=== PATIENT | female | born 1950 | race Caucasian/White ===

== ENCOUNTER → 2016-08-10 | Outpatient (CLI) | payer MEDICARE, BC, OTHER ==
--- NOTE | 2016-08-10 13:40 | RADIOLOGY REPORT (SQ) ---
EXAM DESCRIPTION: MRI LUMBAR SPINE WITHOUT COMPLETED DATE/TIME: 08/10/2016 1:09 pm REASON FOR STUDY: LOW BACK PAIN M54.5 LOW BACK PAIN COMPARISON: None. TECHNIQUE: Sagittal and Axial imaging includes T1, T2, STIR and gradient echo sequences. Coronal T2/ HASTE imaging. LIMITATIONS: None. FINDINGS: VISUALIZED UPPER ABDOMEN: Limited evaluation. No acute or suspicious findings suggested. SEGMENTATION: No transitional anatomy. The lowest well-developed disc space is labeled L5-S1. ALIGNMENT: Mild grade 1 anterolisthesis of L3 over L4, and L4 over L5 VERTEBRAE: Intact. BONE MARROW: Normal. No marrow replacement or reactive changes. DISC SIGNAL: Diffuse decreased T2 weighted intervertebral disc signal. Disc space loss of height at L2-3 and L4-5 POSTERIOR ELEMENTS: Generally intact. No pars defect evident. HARDWARE: None in the spine. CORD AND CONUS: Normal in size and signal intensity. Conus at the T12-L1 level. SOFT TISSUES: No aortic aneurysm seen. No bulky retroperitoneal adenopathy or mass. No paraspinal mas s or fluid. T11-12: Unremarkable T12-L1: No central or foraminal stenosis. Mild bilateral facet hypertrophy. L1-L2: No significant spinal stenosis or exit foraminal stenosis. Mild diffuse posterior disc bulgin g. Mild bilateral facet and ligament hypertrophy. L2-L3: Borderline central canal narrowing results from broad diffuse posterior disc bulging and moder ate bilateral facet and ligament hypertrophy. Mild bilateral inferior foraminal narrowing without ex iting L2 nerve root impingement. L3-L4: Grade 1 anterolisthesis of L3 over L4, broad diffuse posterior disc bulging and bulky bilatera l facet and ligament hypertrophy cause borderline central canal narrowing. There is minimal bilatera l foraminal narrowing without exiting L3 nerve root impingement. L4-L5: Broad diffuse posterior disc bulging with a central and right paracentral disc herniation is p resent. Superior migration of the extruded fragment. The disc herniation flattens the thecal sac al helen the right lateral recess containing the proximal L5 nerve root, best shown on axial T2 images 20- 23, and sagittal images 4-7. There is some narrowing of the proximal right L4-5 neural foramen witho ut definite exiting L4 nerve root impingement. Elsewhere at L4-5, borderline central canal narrowing and mild left foraminal narrowing is present wi thout exiting left L4 nerve root impingement. L5-S1: No significant spinal stenosis or exit foraminal stenosis. Moderate bilateral facet hypertrop hy is present. SACRUM: Visualized upper sacrum intact. OTHER: No other significant findings. IMPRESSION: Right paracentral and proximal foraminal L4-5 disc herniation with superior migration. This flattens the thecal sac at the takeoff of the right proximal L5 nerve root in the lateral recess , and causes mild right-sided foraminal narrowing without definite exiting L4 nerve root impingement. TECHNICAL DOCUMENTATION: JOB ID: [id number] [employer]- All Rights Reserved
== END ==
LOC: RAD 11:10
PROVIDERS: ATTEND Anesthesiology
DX: M54.5 Low back pain (principal)
CPT/HCPCS: 72148